=== PATIENT | female | born 2000 | race Hispanic/Latino ===

== ENCOUNTER 2021-08-26 19:36 | Emergency (ER) | payer OTHER ==
[~2021-08-26] VITALS: Ht 162.6 cm; Wt 60.3 kg
[2021-08-26] MEDS ORDERED: HYDR28.32 TP (21:51)
[2021-08-26] MEDS ORDERED: ACYC-138 PO (21:51)
[2021-08-26] MEDS ORDERED: ACYCLOVIR 800 MG TABLET PO ONE (22:00)
[2021-08-26 22:27] LABS: APPEARANCE,URINE CLEAR (CLEAR); BILIRUBIN,URINE NEGATIVE (NEGATIVE); COLOR,URINE YELLOW (YELLOW); GLUCOSE, URINE (UA) NEGATIVE (NEGATIVE); KETONES,URINE NEGATIVE (NEGATIVE); LEUKOCYTE ESTERASE ,URINE SMALL (NEGATIVE); NITRATE,URINE NEGATIVE (NEGATIVE); OCCULT BLOOD,URINE MODERATE (NEGATIVE); PH,URINE 7.5 (5.0-8.0); PROTEIN,URINE NEGATIVE (NEGATIVE); UROBILINOGEN,URINE 0.2 mg/dL (0.2-1.0)
[2021-08-26 22:31] LABS: HCG,QUAL RESULT NEGATIVE (NEGATIVE)
[2021-08-26 22:44] LABS: BACTERIA,URINE None Seen /HPF (None Seen); SQUAMOUS EPITHELIAL CELL,UR Few /HPF (0-2); WBC,URINE 0-1 /HPF (0-1)
[2021-08-26] MEDS ORDERED: ACYCLOVIR 200 MG CAPSULE ONE (22:55)
[2021-08-26 22:59] VITALS: BP 114/64
== END 2021-08-26 23:00 | disposition home or self-care (01) ==
LOC: EDH 19:36
DX: L98.9 Disorder of the skin and subcutaneous tissue, unspecified (principal); Z79.899 Other long term (current) drug therapy
CPT/HCPCS: 36415; 81001; 81025; 87529